=== PATIENT | female | born 1945 | race Caucasian/White ===

== ENCOUNTER 2019-02-22 15:59 | Inpatient (IN) | payer MEDICARE, OTHER, SELFPAY ==
[2019-02-22 16:01] VITALS: BP 117/73; PULSE 105; RESP 17; TEMP 36.9; O2SAT 99; BMI 35.9
--- NOTE | 2019-02-22 16:18 | ED.VISSUMM ---
- ER Visit Summary Date of Service: 02/22/19 Chief Complaint: [Flank pain] History of Present Illness: The patient is a 73 F [presents the emergency department complaint of flank pain times 4-5 days. Patient was seen at [facility] this morning and was admitted for acute kidney injury and UTI. Patient had a CT scan that showed an 8 x 4 mm right ureteral stone. They apparently do not have urology coverage there and case was discussed with our urologist Dr. Santiago who accepted transfer patient to our emergency department. On arrival patient denies any pain. Patient does not have history of kidney stone otherwise. Patient does have a history of COPD and normally wears 3 L of home O2.] Physical Examination: [HEENT-PERRLA, EOMI. Cranial nerves II through XII grossly intact. TMs clear. Mucous membranes moist. No adenopathy. Cardiovascular-regular rate and rhythm without murmur or ectopy Lungs-good aeration bilaterally. Patient has some pain next Tory wheezes noted. No accessory muscle use or retractions. Abdomen-normoactive bowel sounds, soft, nontender, no rebound or rigidity, no peritoneal signs. Extremities-intact ?4, normal range of motion, normal pulses, atraumatic] Test Results: [None indicated] Emergency Department Course and Treatment: [I reviewed patient's labs from this morning it was noted that she had a normal white blood cell count of 9.3 with a heme globin 13, hematocrit 40, platelets 335. Chemistries were unremarkable. BUN was 22 and creatinine 2.6. Patient did have signs of UTI. CT scan of the abdomen pelvis showed an 8 x 4 mm obstructing mid to distal right ureteral stone there were also 2 other distal right ureteral stones similar in size but nonobstructing. Right lobe of the liver mass appeared stable and likely related to hemangioma. Case was discussed with urology who will admit patient. Patient did receive a DuoNeb aerosol. Patient had received Rocephin at the other facility.] Treatment Plan: [Admit for surgical intervention of ureteral stone] Disposition: [Admit] Impression: [Urolithiasis UTI ] This note was generated with [employer] software. It may contain incorrect words, spelling, and punctuation that were not noted in review of the chart prior to signing ED Disposition - Plan for ED Patient: Referrals: Ирина Finney MD [Primary Care Provider] -
[2019-02-22 16:19] VITALS: PULSE 104; RESP 18
[2019-02-22] MEDS: Ipratropium/Albuterol Sulfate 3 ML AMPUL.NEB INHALATION (16:19)
--- NOTE | 2019-02-22 16:20 | NURSING ---
MED SURG KIDNEY STONE WITH COLIC, UTI MILY
--- NOTE | 2019-02-22 16:21 | ED.DCSUM_ITS ---
- ER Visit Summary Date of Service: 02/22/19 Chief Complaint: [Flank pain] History of Present Illness: The patient is a 73 F [presents the emergency department complaint of flank pain times 4-5 days. Patient was seen at [facility] this morning and was admitted for acute kidney injury and UTI. Patient had a CT scan that showed an 8 x 4 mm right ureteral stone. They apparently do not have urology coverage there and case was discussed with our urologist Dr. Santiago who accepted transfer patient to our emergency department. On arrival patient denies any pain. Patient does not have history of kidney stone otherwise. Patient does have a history of COPD and normally wears 3 L of home O2.] Physical Examination: [HEENT-PERRLA, EOMI. Cranial nerves II through XII grossly intact. TMs clear. Mucous membranes moist. No adenopathy. Cardiovascular-regular rate and rhythm without murmur or ectopy Lungs-good aeration bilaterally. Patient has some pain next Tory wheezes noted. No accessory muscle use or retractions. Abdomen-normoactive bowel sounds, soft, nontender, no rebound or rigidity, no peritoneal signs. Extremities-intact ?4, normal range of motion, normal pulses, atraumatic] Test Results: [None indicated] Emergency Department Course and Treatment: [I reviewed patient's labs from this morning it was noted that she had a normal white blood cell count of 9.3 with a heme globin 13, hematocrit 40, platelets 335. Chemistries were unremarkable. BUN was 22 and creatinine 2.6. Patient did have signs of UTI. CT scan of the abdomen pelvis showed an 8 x 4 mm obstructing mid to distal right ureteral stone there were also 2 other distal right ureteral stones similar in size but nonobstructing. Right lobe of the liver mass appeared stable and likely related to hemangioma. Case was discussed with urology who will admit patient. Patient did receive a DuoNeb aerosol. Patient had received Rocephin at the other facility.] Treatment Plan: [Admit for surgical intervention of ureteral stone] Disposition: [Admit] Impression: [Urolithiasis UTI ] This note was generated with [employer] software. It may contain incorrect words, spelling, and punctuation that were not noted in review of the chart prior to signing ED Disposition - Plan for ED Patient: Referrals: Ирина Finney MD [Primary Care Provider] -
[2019-02-22 16:50] VITALS: BMI 35.9
[2019-02-22 17:16] VITALS: BP 125/55; PULSE 101; RESP 18; TEMP 36.7; O2SAT 99
[2019-02-22 17:21] VITALS: BMI 34.5
--- NOTE | 2019-02-22 18:10 | PCM.HP.STD ---
History of Present Illness Date of Admission: 02/22/19 Chief Complaint: Right kidney stone with obstruction and urinary tract infection The patient is a 73 year old female with a history of COPD who presented to the emergency room with right flank pain CAT scan was done that demonstrated a large 8 mm stone in the mid right ureter. Plan to check a KUB in the morning. She was admitted for the urinary tract infection in the stone. Her pain is abated. She has a history of COPD and chronically on oxygen therapy. She is clinically stable right now. Past Medical History Medical History: Medical History (Last Updated 02/22/19 @ 18:12 by Jeff Santiago MD) Colon cancer C18.9 Glaucoma H40.9 Oxygen dependent Z99.81 COPD (chronic obstructive pulmonary disease) J44.9 Allergies cat dander Allergy (Verified 02/22/19 16:50) Itching dog dander Allergy (Verified 02/22/19 16:50) Itching grass pollen Allergy (Verified 02/22/19 16:50) seasonal-stuffy nose timolol Allergy (Verified 02/22/19 16:01) Shortness of breath Home Medications: Ambulatory Orders Medication Instructions Recorded Arformoterol Tartrate [Brovana] 2 ml INHALATION BID 02/22/19 Brimonidine Tartrate 0.2% 1 drop EACH EYE BID 02/22/19 [Brimonidine 0.2% 5Ml Bottle] C,E,Zinc,Copper 24/Om3/Lut/Vale 1 cap PO DAILY 02/22/19 [Ocuvite Adult 50 Plus Softgel] Dorzolamide HCl/Pf [Dorzolamide 2% 1 drop EACH EYE BID 02/22/19 Eye Drop] Ipratropium [place] 0.2 mg IH 4X/DAY 02/22/19 Latanoprost [Xalatan] 1 drop EACH EYE QHS 02/22/19 Levothyroxine [Synthroid] 75 mcg PO DAILY 02/22/19 Melatonin 1 mg PO QHS 02/22/19 Surgical History: - - Colon surgery for colon cancer Psychiatric History: No pertinent psych hx ONCOLOGY ACCOUNT SPECIALIST History: No pertinent ONCOLOGY ACCOUNT SPECIALIST history Lives: With Family Smoking Status: Former smoker Tobacco Use: Cigarettes Alcohol: None Drugs: None - *Family History Maternal History Items: No pertinent history Review of Systems Constitutional: Denies: Chills, Fever, Weight Change HEENT: Reports: Difficulty Hearing Cardiovascular: Denies: Chest Pain, Palpitations Respiratory: Reports: Shortness of Breath. Denies: Cough, Shortness of breath at rest, Sputum production Gastrointestinal: Reports: Abdominal Pain. Denies: Nausea, Vomiting Genitourinary: Denies: Dysuria Musculoskeletal: Denies: Joint Pain, Joint Tenderness Skin: Denies: Rash, Wounds Neurological: Denies: Numbness, Tingling, Focal weakness Psychiatric: Denies: Anxiety, Depression, Homicidal Ideations, Suicidal Ideations Hematologic/ Lymphatic: Denies: Easy Bruising, Easy Bleeding VTE Information - Inpt Only VTE Present on Admission: No VTE Mechan Device Prophylaxis: SCD's - Physical Exam General: Alert, Oriented x3, Cooperative HEENT: Atraumatic, PERRLA, EOMI, Normocephalic Neck: Supple, No JVD, Negative Carotid Bruits Lungs: Clear to auscultation, Normal air movement Cardiovascular: Regular rate, No murmurs Abdomen: Bowel Sounds Present, Soft, Non Tender Extremities: No edema, Capillary Refill Less than 3 Seconds Skin: No rashes, No breakdown Musculoskeletal: No Tenderness to Palpation of Joints or Extremities Neurological: Cranial nerves II-XII grossly intact Psych/Mental Status: Normal Affect, Appropriate Vital Signs Temp Pulse Resp BP Pulse Ox 98.0 F 101 H 18 125/55 H 99 02/22/19 17:16 02/22/19 17:16 02/22/19 17:16 02/22/19 17:16 02/22/19 17:16 Oxygen Flow Rate (L/min) 3 Oxygen Delivery Method Nasal Cannula Weight: 83.461 kg Body Mass Index (BMI) 34.5 Assessment/Plan 73-year-old female with multiple medical problems including COPD, history of colon cancer, glaucoma, she is oxygen dependent. Presents the hospital with urinary tract infection obstructing stone plan to admit her for pain control, n.p.o. at midnight, check a KUB in the morning, and plan to place a stent on the right side tomorrow. She understands she will not have the stone removed we will just place a stent stabilizer and then after discharge she will follow-up in my office to get it set up for surgery for the kidney stone.
[2019-02-22] MEDS: 0.9% Normal Saline 1,000 ML 75 ML IV (18:27)
--- NOTE | 2019-02-22 18:35 | RAD_ITS ---
HISTORY: F/U RIGHT SIDED KIDNEY STONE WITH COLIC EXAM/TECHNIQUE: XR Abdomen 1 View: COMPARISON: None. FINDINGS: # of images incl. paperwork: 2 1.1 cm in length, 0.4 cm in diameter calcification overlies the right sacrum at the level of S2. 2 other similar oblong calcifications lower in the right pelvis measure 0.9 cm in length. Mild gaseous distention of bowel with no evidence of obstruction and no apparent free air. Mild left scoliosis lumbar spine. No acute osseous abnormality. RAD/Abdomen Single View IMPRESSION: Right pelvic calcifications. 1 of these could be in the distal ureter although they may represent vascular or other calcifications. CT would more definitively evaluate if necessary. at 0124 Reported and signed by: Edis Joseph MD Electronically Signed: Edis Joseph, at 1:23 EDT Tel , Service support ,
[2019-02-22] MEDS: Ciprofloxacin 400 MG/200 ML BAG 200 MG IV (19:02)
[2019-02-22] MEDS: CLARIFY ORDER 1 EACH NOTE (19:06)
[2019-02-22 21:00] VITALS: BP 113/63; PULSE 109; RESP 20; TEMP 36.6; O2SAT 95
[2019-02-22] MEDS: Famotidine 20 MG Tablet PO (21:07)
[2019-02-22] MEDS: Latanoprost 0.005% 1 Bottle 1 DRP EACH EYE (21:07)
[2019-02-22] MEDS: Dorzolamide 2% 10ml Bottle 1 DRP EACH EYE (21:08)
[2019-02-22] MEDS: BRIMONIDINE 0.2% 5ML BOTTLE 1 DRP EACH EYE (21:08)
[2019-02-22] MEDS: 0.9% NaCl Peripheral Flush Adult/Peds IV (21:11)
[2019-02-22 21:15] VITALS: RESP 20; O2SAT 95
[2019-02-22 21:36] LABS: Bedside Glucose 97 mg/dL (70-110)
[2019-02-22] MEDS: Ipratropium 0.5 MG/2.5 ML SOLUTION 0.2 MG INHALATION (21:43)
[2019-02-23] VITALS (15 sets, daily range): BP systolic 89–136; BP diastolic 50–75; PULSE 83–108; RESP 14–22; TEMP 36.2–36.7; O2SAT 98–100
[2019-02-23] MEDS: Ipratropium 0.5 MG/2.5 ML SOLUTION 0.2 MG INHALATION (02:57)
[2019-02-23 05:34] LABS: Absolute Lymphocyte Count 0.93 X10^3/ul (0.83-4.51); Absolute Neutrophil Count 4.5 X10^3/uL (2.0-7.7); Basophil# 0.03 X10^3/uL; Basophil% 0.5 % (0-1); Eosinophil# 0.16 X10^3/uL; Eosinophils% 2.6 % (0-5); Hematocrit 37.5 % (37-47); Hemoglobin 10.9 g/dl (12.0-15.0); Lymphocyte # 0.93 X10^3/ul (4.0); Lymphocyte % 15.4 % (19-41); Mean Corp Hgb Conc 29.1 g/gl (32-36); Mean Corpuscular Hgb 29.9 pg (27.0-32.0); Mean Platelet Vol. 9.7 fl (6.2-12.0); Monocyte# 0.39 X10^3/uL; Monocyte% 6.4 % (0-10); Neutrophil # 4.53 X10^3/uL (2.7-7.7); Neutrophil % 74.9 % (47-70); Platelet Count 246 K/mm3 (150-450); RBC Distribution Width CV 14.7 % (11.6-14.6); RBC Distribution Width SD 55.7 fl (35.1-43.9); Red Blood Count 3.64 M/mm3 (4.2-5.4); White Blood Count 6.1 K/mm3 (4.4-11.0)
[2019-02-23 05:44] LABS: POSITIVE COUNT NO; POSITIVE DIFFERENTIAL NO; POSITIVE MORPHOLOGY NO
[2019-02-23 06:00] LABS: Anion Gap 7 (5-15); BUN 26 mg/dL (7-18); BUN/Creat Ratio 10.5 RATIO (10-20); Calcium,Total 8.1 mg/dL (8.5-10.1); Chloride 113 mmol/L (98-107); Creatinine, Serum 2.48 mg/dL (0.55-1.02); EST Glomerular Filtration Rate 20 mL/min (>60); Est Glom Filt Rate - Afr Amer 25 mL/min (>60); Estimated Creatinine Clearance 15.25 ml/min; Glucose 94 mg/dL (74-106); Potassium 4.3 mmol/L (3.5-5.1); Sodium Level 140 mmol/L (136-145)
[2019-02-23] MEDS: Ipratropium/Albuterol Sulfate 3 ML AMPUL.NEB INHALATION ×3 (06:45→22:17)
[2019-02-23] MEDS: Ciprofloxacin 400 MG/200 ML BAG 200 MG IV ×2 (09:14→21:13)
[2019-02-23] MEDS: Dorzolamide 2% 10ml Bottle 1 DRP EACH EYE ×2 (09:17→21:13)
[2019-02-23] MEDS: BRIMONIDINE 0.2% 5ML BOTTLE 1 DRP EACH EYE ×2 (09:18→21:14)
--- NOTE | 2019-02-23 11:50 | CASEMGMT ---
RN CM attempted to complete assessment at this time. Patient is out of room at procedure for cytoscopy and stent placement. RN CM will attempted assessment at later time.
--- NOTE | 2019-02-23 12:52 | PCM.OPRPT ---
Report of Operation Date of Procedure: 02/23/19 Pre-Operative Diagnosis: Right obstructing ureteral calculi with hydronephrosis and urinary tract infection Post-Operative Diagnosis: Same Surgery/Procedure Performed:: Cystoscopy, right retrograde pyelogram, right stent placement Description of Surgical Findings:: 73-year-old female taken back to the operating room after smooth induction of anesthesia she was placed in dorsolithotomy position, the urethra and vaginal area were prepped and draped in usual sterile fashion, she presents today for a stent placement she has an obstructing stone in the right kidney and she has an active urinary tract infection. She was placed in dorsolithotomy position, the urethra vaginal area prepped and draped in usual fashion, went into the bladder with a 21 K[place] rigid cystourethroscope the entire length the urethra is normal identify the trigone left the right ureter orifice were identified the right ureter orifice with and cannulated with a Glidewire advanced a wire up into the kidney medially had some expression of debris from the right kidney, I then put a Pollack catheter over the wire advanced to the kidney performed a retrograde pyelogram could see the dilated kidney and obstruction and hydronephrosis on the right side I then advanced a wire back up over the wire place a stent 6 Kis[place] by 26 cm stent once a stent was in good position I pulled the wire stent coiled properly, The kidney bladder good position drain the bladder patient anesthetic was reversed to take back to PACU good condition. Type of Anesthesia:: Local MAC Drains: stent right - Admit VTE Documentation VTE Present on Admission: No VTE Mechan Device Prophylaxis: SCD's
[2019-02-23] MEDS: 0.9% Normal Saline 1,000 ML 75 ML IV ×2 (13:59→20:25)
[2019-02-23] MEDS: Multivitamin (Healthy Eyes) Capsule 1 CAP PO (13:59)
[2019-02-23] MEDS: Levothyroxine 75 MCG Tablet PO (13:59)
[2019-02-23] MEDS: Famotidine 20 MG Tablet PO ×2 (13:59→21:13)
[2019-02-23 16:06] LABS: Bedside Glucose 118 mg/dL (70-110)
[2019-02-23] MEDS: Latanoprost 0.005% 1 Bottle 1 DRP EACH EYE (21:14)
[2019-02-23 22:20] LABS: Bedside Glucose 110 mg/dL (70-110)
[2019-02-24] VITALS (7 sets, daily range): BP systolic 100–140; BP diastolic 64–72; PULSE 88–101; RESP 16–20; TEMP 36.5–37.2; O2SAT 98–100
[2019-02-24] MEDS: Ipratropium/Albuterol Sulfate 3 ML AMPUL.NEB INHALATION ×3 (04:44→16:37)
[2019-02-24] MEDS: Levothyroxine 75 MCG Tablet PO (06:04)
[2019-02-24 07:11] LABS: Bedside Glucose 82 mg/dL (70-110)
[2019-02-24] MEDS: Multivitamin (Healthy Eyes) Capsule 1 CAP PO (07:57)
[2019-02-24] MEDS: Famotidine 20 MG Tablet PO (07:57)
[2019-02-24] MEDS: BRIMONIDINE 0.2% 5ML BOTTLE 1 DRP EACH EYE (07:57)
[2019-02-24] MEDS: Dorzolamide 2% 10ml Bottle 1 DRP EACH EYE (07:58)
[2019-02-24 08:20] LABS: Anion Gap 3 (5-15); BUN 16 mg/dL (7-18); BUN/Creat Ratio 11.3 RATIO (10-20); Calcium,Total 8.2 mg/dL (8.5-10.1); Chloride 112 mmol/L (98-107); Creatinine, Serum 1.42 mg/dL (0.55-1.02); EST Glomerular Filtration Rate 39 mL/min (>60); Est Glom Filt Rate - Afr Amer 47 mL/min (>60); Estimated Creatinine Clearance 26.63 ml/min; Glucose 86 mg/dL (74-106); Sodium Level 142 mmol/L (136-145)
[2019-02-24] MEDS: Ciprofloxacin 400 MG/200 ML BAG 200 MG IV (09:53)
[2019-02-24] MEDS: 0.9% Normal Saline 1,000 ML 75 ML IV (09:53)
[2019-02-24 11:16] LABS: Bedside Glucose 142 mg/dL (70-110)
--- NOTE | 2019-02-24 13:50 | CASEMGMT ---
RN CM Face to Face with patient for initial transition planning/care coordination assessment. RN CM introduced self and role at [facility]. Patient lying in bed, alert and oriented. Patient willing to participate in assessment and is able to answer all questions appropriately. Care providers, pharmacy, and demographics verified. Patient wishes to discharge home, denies need for home health at this time. Patient states she has no further needs or concerns at this time. CM to follow for discharge planning needs that may arise. PCP: Sharmin Specialists: None Preferred Pharmacy: [facility] Insurance: [employer] Prescription Benefit: yes Living Will/HPOA: yes Osmar Paulson LNOK: Living Arrangements: Patient lives with in mobile home with 4 steps to enter the home. Patient is independent at home. Transportation: self or family DME/HHC: Patient has shower chair, nebulizer and oxygen @ 3lpm with portability with [employer]. Patient has portable tank here at hospital. Disposition Plan: Patient to discharge home with family support and follow-up plan in place. Rolanda TRIPP, RN, CM
--- NOTE | 2019-02-24 15:59 | PCM.DC.URO ---
Discharge Diet: Light diet - advance as tolerated Discharge Activity: Return to Normal Activity Allergies/Adverse Reactions: Allergies cat dander Allergy (Verified 02/22/19 16:50) Itching dog dander Allergy (Verified 02/22/19 16:50) Itching grass pollen Allergy (Verified 02/22/19 16:50) seasonal-stuffy nose timolol Allergy (Verified 02/22/19 16:01) Shortness of breath Medications to take at Discharge Arformoterol Tartrate [Brovana] 2 ml INHALATION BID 02/22/19 Brimonidine Tartrate 0.2% [Brimonidine 0.2% 5Ml Bottle] 1 drop EACH EYE BID 02/22/19 C,E,Zinc,Copper 24/Om3/Lut/Vale [Ocuvite Adult 50 Plus Softgel] 1 cap PO DAILY 02/22/19 Dorzolamide HCl/Pf [Dorzolamide 2% Eye Drop] 1 drop EACH EYE BID 02/22/19 Ipratropium [place] 0.2 mg IH 4X/DAY 02/22/19 Latanoprost [Xalatan] 1 drop EACH EYE QHS 02/22/19 Levothyroxine [Synthroid] 75 mcg PO DAILY 02/22/19 Melatonin 1 mg PO QHS 02/22/19 Acetaminophen [Tylenol Extra Strength] 500 mg PO Q4H PRN PRN #20 tablet 02/24/19 Ciprofloxacin [Cipro] 500 mg PO BID #6 tablet 02/24/19 Ibuprofen 600 mg PO Q6H PRN PRN #20 tablet 02/24/19 The following prescriptions were given: Acetaminophen [Tylenol Extra Strength] 500 mg PO Q4H PRN PRN #20 tablet PRN Reason: Pain Ibuprofen 600 mg PO Q6H PRN PRN #20 tablet PRN Reason: Pain Ciprofloxacin [Cipro] 500 mg PO BID #6 tablet Primary Care Physician: Ирина Finney MD [Primary Care Provider] - Test Results: Test results from this visit will be discussed in further detail at your follow-up appointment, if applicable. Please Follow Up With: Jeff Santiago MD When: please call my office
--- NOTE | 2019-02-24 16:01 | DS.PCM_ITS ---
Discharge Date and Diagnosis Date of Admission: 02/22/19 Date of Discharge: 02/24/19 Hospital Course and Treatment Operations: - - cysto stent placement, Right. Procedures: None Summary of Care Provided: The patient is a 73 year old female admitted for UTI and stone had cysto and right stent, doign well post op Cr coming down no more pain, no fevers or chills discharged home, follow up in my office - Physical Exam Vital Signs Temp Pulse Resp BP Pulse Ox 98.9 F 101 H 18 119/71 98 02/24/19 14:28 02/24/19 14:28 02/24/19 14:28 02/24/19 14:28 02/24/19 14:28 Oxygen Flow Rate (L/min) 3 Oxygen Delivery Method Nasal Cannula Weight: 83.461 kg Body Mass Index (BMI) 34.5 Intake and Output for Last 24 Hours 02/22/19 02/23/19 02/24/19 23:59 23:59 23:59 Intake Total 1580 / 1580 3198 / 3198 Output Total 300 / 300 1350 / 1350 Balance 1280 / 1280 1848 / 1848 Laboratory Tests Past 24 Hrs 02/24/19 07:52 Sodium 142 Potassium 4.0 Chloride 112 H Carbon Dioxide 27.0 Anion Gap 3 L BUN 16 Creatinine 1.42 H Estim Creat Clear Calc 26.63 Est GFR (MDRD) Af Amer 47 L Est GFR (MDRD) Non-Af 39 L BUN/Creatinine Ratio 11.3 Glucose 86 Calcium 8.2 L POC Glucose 02/24/19 02/24/19 02/23/19 11:13 07:04 21:07 POC Glucose 142 H 82 110 02/23/19 15:57 POC Glucose 118 H Discharge Diet: Light diet - advance as tolerated Discharge Activity: Return to Normal Activity Home Medications: Medications to take at Discharge Arformoterol Tartrate [Brovana] 2 ml INHALATION BID 02/22/19 Brimonidine Tartrate 0.2% [Brimonidine 0.2% 5Ml Bottle] 1 drop EACH EYE BID 02/22/19 C,E,Zinc,Copper 24/Om3/Lut/Vale [Ocuvite Adult 50 Plus Softgel] 1 cap PO DAILY 02/22/19 Dorzolamide HCl/Pf [Dorzolamide 2% Eye Drop] 1 drop EACH EYE BID 02/22/19 Ipratropium [place] 0.2 mg IH 4X/DAY 02/22/19 Latanoprost [Xalatan] 1 drop EACH EYE QHS 02/22/19 Levothyroxine [Synthroid] 75 mcg PO DAILY 02/22/19 Melatonin 1 mg PO QHS 02/22/19 Acetaminophen [Tylenol Extra Strength] 500 mg PO Q4H PRN PRN #20 tablet 02/24/19 Ciprofloxacin [Cipro] 500 mg PO BID #6 tablet 02/24/19 Ibuprofen 600 mg PO Q6H PRN PRN #20 tablet 02/24/19 Following Prescrptions Were Given to Patient: Acetaminophen [Tylenol Extra Strength] 500 mg PO Q4H PRN PRN #20 tablet PRN Reason: Pain Ibuprofen 600 mg PO Q6H PRN PRN #20 tablet PRN Reason: Pain Ciprofloxacin [Cipro] 500 mg PO BID #6 tablet Primary Care Physician: Ирина Finney MD [Primary Care Provider] - Please Follow Up With: Jeff Santiago MD When: please call my office Medical Necessity - Tobacco Use Smoking Status: Former smoker Tobacco Use: Cigarettes Meaningful Use Info Meaningful Use Diagnoses (Choose all that apply): None applicable
== END 2019-02-24 17:15 | disposition home or self-care (01) | DRG 661 ==
LOC: ED 16:32 → MS3 16:40
PROVIDERS: Admitting Provider Urology; Emergency Provider Emergency Medicine; Family Provider Internal Medicine Infectious Disease; PCP Internal Medicine Infectious Disease; Visit Provider Urology
PROC: 0T768DZ Dilation of Right Ureter with Intraluminal Device, Via Natural or Artificial Opening Endoscopic (ICD-10-PCS; principal; 2019-02-23 11:45)
DX: N13.6 Pyonephrosis (principal); E86.0 Dehydration; Z99.81 Dependence on supplemental oxygen; J44.9 Chronic obstructive pulmonary disease, unspecified; Z87.891 Personal history of nicotine dependence; Z85.038 Personal history of other malignant neoplasm of large intestine; H40.9 Unspecified glaucoma
CPT/HCPCS: 36415; 74018; 76000; 80048; 82962; 85025; 87086; 87088; 94640; 99251; 99283; J7030; A4216; C1769; C2617; G0463; J0744; J2405

== ENCOUNTER 2019-03-10 09:27 | Day surgery (SDC) | payer MEDICARE, OTHER, SELFPAY ==
[2019-03-10 09:51] VITALS: BP 134/85; PULSE 103; RESP 16; TEMP 36.8; O2SAT 99; BMI 34.1
[2019-03-10] MEDS: Cefazolin 2 GM in 0.9% Normal Saline 100 ML IV (11:45)
--- NOTE | 2019-03-10 11:53 | PCM.DC.URO ---
Discharge Diet: Light diet - advance as tolerated Discharge Activity: Return to Normal Activity Call your doctor if your incision/area has: Continuous Slow Oozing, Sudden Increased Bleeding, Increased Pain/ Swelling, Increased Redness, Foul Smelling Discharge, Swelling at the incision site Call your doctor if you observe: Fever of 101 or Higher Instructions: Treating Kidney Stones: Ureteroscopic Stone Removal Allergies/Adverse Reactions: Allergies cat dander Allergy (Verified 03/10/19 09:48) Itching dog dander Allergy (Verified 03/10/19 09:48) Itching grass pollen Allergy (Verified 03/10/19 09:48) seasonal-stuffy nose timolol Allergy (Verified 03/10/19 09:48) Shortness of breath Medications to take at Discharge Arformoterol Tartrate [Brovana] 2 ml INHALATION BID 02/22/19 Brimonidine Tartrate 0.2% [Brimonidine 0.2% 5Ml Bottle] 1 drop EACH EYE BID 02/22/19 C,E,Zinc,Copper 24/Om3/Lut/Vale [Ocuvite Adult 50 Plus Softgel] 1 cap PO DAILY 02/22/19 Dorzolamide HCl/Pf [Dorzolamide 2% Eye Drop] 1 drop EACH EYE BID 02/22/19 Ipratropium [place] 0.2 mg IH 4X/DAY 02/22/19 Latanoprost [Xalatan] 1 drop EACH EYE QHS 02/22/19 Levothyroxine [Synthroid] 75 mcg PO DAILY 02/22/19 Melatonin 5 mg PO QHS 02/22/19 Acetaminophen [Tylenol Extra Strength] 500 mg PO Q4H PRN PRN #20 tablet 02/24/19 Ibuprofen 600 mg PO Q6H PRN PRN #20 tablet 02/24/19 Albuterol Inhaler [Ventolin Hfa (SP)] 1 - 2 puff INHALATION Q4H PRN PRN 03/01/19 Acetaminophen [Tylenol Extra Strength] 500 mg PO Q4H PRN PRN #20 tablet 03/10/19 Ciprofloxacin [Cipro] 500 mg PO BID #6 tablet 03/10/19 Ibuprofen 600 mg PO Q6H PRN PRN #20 tablet 03/10/19 The following prescriptions were given: Acetaminophen [Tylenol Extra Strength] 500 mg PO Q4H PRN PRN #20 tablet PRN Reason: Pain Ibuprofen 600 mg PO Q6H PRN PRN #20 tablet PRN Reason: Pain Ciprofloxacin [Cipro] 500 mg PO BID #6 tablet Primary Care Physician: Dior Vogel [Primary Care Provider] - Test Results: Test results from this visit will be discussed in further detail at your follow-up appointment, if applicable. Please Follow Up With: Jeff Santiago MD When: please call to make an appointment.
--- NOTE | 2019-03-10 12:38 | PCM.OPRPT ---
Report of Operation Date of Procedure: 03/10/19 Pre-Operative Diagnosis: Right ureteral calculi multiple causing obstruction status post stent Post-Operative Diagnosis: Same Surgery/Procedure Performed:: Cystoscopy, right ureteroscopy laser lithotripsy of 3 ureteral stones, basket extraction of the fragments, retrograde pyelogram and interpretation of fluoroscopic images, right stent placement Description of Surgical Findings:: 73-year-old female presented to the hospital with severe pain in the right side she underwent a cystoscopy and stent placement for obstructing stones in the distal right ureter this was done on the first admission. She was checked for infection and she has been treated and cured she is medically optimized she is on chronic oxygen has COPD and today will undergo ureteroscopy and laser the trip see if the stone fragments in the ureter. 73-year-old feels taken back to the operating room after smooth induction of general anesthesia she was placed in dorsolithotomy position, went into the bladder with a 21 [place]ian rigid cystourethroscope, grabbed the existing stent from the right ureteral orifice and pulled out the meatus, I then advanced a wire up the stent and then over the wire backloaded the stent off. Then the wire was left in place next the wire and then with a flexible your, semirigid ureteroscope and encountered the first stone this with laser little tiny pieces account of the second stones and laser little tiny pieces account of the third stone this was lasered a little tiny pieces after completing laser lithotripsy for the stone I then used a basket and extracted all the fragments into the bladder I then went up the ureter all the way up to the renal pelvis no other stones are seen along the course of the ureter left the wire in place work my way down the ureter did a retrograde pyelogram looked interpreted all the images, over the wire then advanced a stent 6 Georgian by 26 and a stent was a stent was in place and pulled the wire stent in the kidney bladder good position, drain the bladder left the stent on and left the string on the stent for easy extraction patient anesthetic was reversed and she is taken back to PACU good condition plan to see her next week to remove the stent. Type of Anesthesia:: General Drains: stent right side - Admit VTE Documentation VTE Present on Admission: No VTE Mechan Device Prophylaxis: SCD's
[2019-03-10 12:50] VITALS: BP 124/78; BP 134/85; PULSE 89; RESP 20; TEMP 35.9; O2SAT 98
[2019-03-10 13:00] VITALS: BP 122/62; BP 134/85; PULSE 87; RESP 18; O2SAT 99
[2019-03-10 13:15] VITALS: BP 131/61; BP 134/85; PULSE 89; RESP 18; TEMP 36.1; O2SAT 98
[2019-03-10 14:17] VITALS: BP 134/85; BP 137/69; PULSE 110; RESP 18; TEMP 36.6; O2SAT 92
== END 2019-03-10 14:18 | disposition home or self-care (01) ==
LOC: SDC 09:28 → AC 09:29
PROVIDERS: Family Provider Family Medicine; PCP Family Medicine; Referring Provider Urology; Visit Provider Urology
PROC: 0TJ98ZZ Inspection of Ureter, Via Natural or Artificial Opening Endoscopic (ICD-10-PCS; CPT 52352; principal; 2019-03-10 11:25)
DX: N20.1 Calculus of ureter (principal); N39.0 Urinary tract infection, site not specified; J44.9 Chronic obstructive pulmonary disease, unspecified; H40.9 Unspecified glaucoma; Z78.0 Asymptomatic menopausal state; Z99.81 Dependence on supplemental oxygen; Z79.899 Other long term (current) drug therapy; Z87.891 Personal history of nicotine dependence; Z85.038 Personal history of other malignant neoplasm of large intestine; Z86.718 Personal history of other venous thrombosis and embolism; Z87.442 Personal history of urinary calculi; Z87.440 Personal history of urinary (tract) infections
CPT/HCPCS: 00918; 52356; 76000; J7120; C1769; C2617; J2405

== ENCOUNTER → 2020-09-04 12:28 | Outpatient (CLI) | payer MEDICARE, OTHER, SELFPAY ==
[2020-05-26 09:45] VITALS: BMI 34.1
--- NOTE | 2020-09-04 13:44 | CPS ---
Patient could not do body box due to being claustrophobic.
--- NOTE | 2020-09-05 10:26 | PFT ---
INTRODUCTION: The patient is a 75-year-old female that presents for pulmonary function studies secondary to a diagnosis of COPD. Respiratory therapy reported good patient effort. However, the patient was unable to perform body plethysmography due to being claustrophobic. Bronchodilators were used during testing. INTERPRETATION: Forced expiration spirometry demonstrates the presence of a very severe large airways obstructive ventilatory defect. There was a significant response to aerosolized bronchodilators noted. Spirograms are of fair quality and do not plateau indicating slow emptying of the lungs. The respiratory flow volume loop revealed decreased expiratory flow rates at all lung volumes consistent with airways obstruction. Body plethysmography was unable to be obtained due to patient reported claustrophobia. Diffusing capacity by single breath CO is severely reduced at 37% of predicted. IMPRESSION: Partially reversible very severe large airways obstructive ventilatory defect with symmetric reduction in diffusing capacity.
== END ==
PROVIDERS: PCP Family Medicine; Referring Provider Nurse Practitioner Acute Care; Visit Provider Nurse Practitioner Acute Care
DX: J44.9 Chronic obstructive pulmonary disease, unspecified (principal)
CPT/HCPCS: 94060; 94729

== ENCOUNTER → 2020-09-07 11:13 | Outpatient (CLI) | payer MEDICARE, OTHER, SELFPAY ==
[2020-05-26 09:45] VITALS: BMI 34.1
[2020-09-07 11:15] VITALS: PULSE 104; PULSE 105; PULSE 108; PULSE 109; PULSE 110; PULSE 112; PULSE 117; O2SAT 88; O2SAT 94; O2SAT 95; O2SAT 96; O2SAT 97
--- NOTE | 2020-09-07 11:54 | CPS ---
PATIENT STATES THAT SHE WEARS 3-4L AT REST, AND UP TO 5L WHEN WALKING. ON RA PATIENT'S SATURATIONS DROPPED TO 88%, THEREFORE TEST WAS INITIATED ON 4L. PATIENTS SATURATIONS REMAINED GREATER THAN 90% FOR THE REMAINDER OF THE TEST ON 4L. PATIENT ALSO USED WHEELCHAIR TO PUSH FOR ASSISTANCE DURING TEST WELL.
--- NOTE | 2020-09-08 10:37 | PCM.PSN.6M ---
PSN 6 Minute Walk Test - 6 Minute Walk Test 6 Minute Walk Test: 6 Minute Walk Test PSN:6-Minute Walk Test Start: 09/07/20 11:49 Freq: Status: Active Protocol: [id number] Document 09/07/20 11:15 (Rec: 09/07/20 11:56 [id number]) 6 Minute Walk Test Date Performed 09/07/20 Time Performed 11:15 Height 5 ft 1 in Weight: 185 lb Weight in Pounds 185.[address]: Ericka Jolly PATIENT DAY COORDINATOR FIO2 (% Oxygen) 36 Pre-test Oxygen Delivery Method Room Air Pulse Ox (%) 88 Pulse Rate (60-100 beats/min) 104 H Dyspnea Sreedhar Scale (0-10) 0 Exertion Sreedhar Scale (6-20) 6 1st minute Oxygen Flow Rate (L/min) (L/min) 4 Oxygen Delivery Method Nasal Cannula Pulse Ox (%) 96 Pulse Rate (60-100 beats/min) 112 H Number of Rests Taken 1 2nd minute Oxygen Flow Rate (L/min) (L/min) 4 Oxygen Delivery Method Nasal Cannula Pulse Ox (%) 96 Pulse Rate (60-100 beats/min) 112 H 3rd minute Oxygen Flow Rate (L/min) (L/min) 4 Oxygen Delivery Method Nasal Cannula Pulse Ox (%) 95 Pulse Rate (60-100 beats/min) 110 H Number of Rests Taken 1 4th minute Oxygen Flow Rate (L/min) (L/min) 4 Oxygen Delivery Method Nasal Cannula Pulse Ox (%) 96 Pulse Rate (60-100 beats/min) 109 H Number of Rests Taken 1 5th minute Oxygen Flow Rate (L/min) (L/min) 4 Oxygen Delivery Method Nasal Cannula Pulse Ox (%) 94 Pulse Rate (60-100 beats/min) 105 H 6th minute Oxygen Flow Rate (L/min) (L/min) 4 Oxygen Delivery Method Nasal Cannula Pulse Ox (%) 97 Pulse Rate (60-100 beats/min) 108 H Post-test Oxygen Flow Rate (L/min) (L/min) 4 Oxygen Delivery Method Nasal Cannula Pulse Ox (%) 94 Pulse Rate (60-100 beats/min) 117 H Dyspnea Sreedhar Scale (0-10) 3 Exertion Sreedhar Scale (6-20) 12 Full Laps Walked 8 Partial Lap, Number of Tiles Walked 0 Total Distance Walked (ft) 472 10/22/20 11:54 Cardiopulmonary Services by Caridad Grace PATIENT STATES THAT SHE WEARS 3-4L AT REST, AND UP TO 5L WHEN WALKING. ON RA PATIENT'S SATURATIONS DROPPED TO 88%, THEREFORE TEST WAS INITIATED ON 4L. PATIENTS SATURATIONS REMAINED GREATER THAN 90% FOR THE REMAINDER OF THE TEST ON 4L. PATIENT ALSO USED WHEELCHAIR TO PUSH FOR ASSISTANCE DURING TEST WELL. Initialized on 09/07/20 11:54 - END OF NOTE - Interpretation Interpretation: The patient ambulated 472 feet over the course of 6 minutes beginning on room air without assistive devices or breaks. Pretesting oxygen saturation was noted to be 88% on room air. The patient was placed on 4 L/min and was able to complete the remainder of the test while maintaining appropriate oxygen saturations. - Recommendations Recommendations: 4 L/min of supplemental oxygen should be utilized at all times.
== END ==
PROVIDERS: PCP Family Medicine; Referring Provider Nurse Practitioner Acute Care; Visit Provider Nurse Practitioner Acute Care
DX: J44.9 Chronic obstructive pulmonary disease, unspecified (principal)
CPT/HCPCS: 94618